=== PATIENT | female | born 1980 | race Caucasian/White ===

== ENCOUNTER 2016-03-04 00:06 | Emergency (ER) | END 2016-03-04 04:25 | disposition left against medical advice (07) | DX: Z53.21 Procedure and treatment not carried out due to patient leaving prior to being seen by health care provider (principal) ==

== ENCOUNTER 2016-10-30 01:40 | Emergency (ER) | payer MEDICAID ==
[~2016-10-30] VITALS: Ht 162.6 cm; Wt 63.5 kg
[~2016-10-30 01:40] MED LIST: DOXY100T2 PO; HYDR-3498 PO; IBUP800T25 PO; NITR-58 PO; ONDA4TAB35 PO
[2016-10-30 01:45] VITALS: Ht 162.6 cm; Wt 63.5 kg
--- NOTE | 2016-10-30 02:23 | ERD ---
ER Documentation Chief Complaint Date/Time DATE: 10/30/16 TIME: 02:22 Chief Complaint AMY flank pain x 3 days. +hematuria. HPI 36-year-old female presents in emergency department for complaints of bilateral flank pain, hematuria and dysuria for 3 days. Patient's complaining of pain in the bilateral flank area sharp pain, Coumadin with dysuria burning pain 4/10 scale, is accompanied with hematuria. Patient denies any fever or chills. Patient denies any vaginal bleeding. Patient denies any nausea or vomiting. Patient denies any diarrhea or constipation. ROS All systems reviewed and are negative except as per history of present illness. Medications Home Meds Active Scripts Polyethylene Glycol* (Miralax*) 17 Gm Powd.pack, 17 GM PO DAILY, #7 Prov:SUYAPA DEAN NP 10/30/16 Ondansetron (Ondansetron Odt) 4 Mg Tab.rapdis, 4 MG PO Q8 Y for NAUSEA AND/OR VOMITING, #10 TAB Prov:SUYAPA DEAN NP 10/30/16 Hydrocodone/Acetaminophen ([place] 5-325 Tablet) 1 Each Tablet, 1 TAB PO Q6H Y for SEVERE PAIN LEVEL 7-10, #20 TAB Prov:SUYAPA DEAN NP 10/30/16 Ciprofloxacin Hcl* (Ciprofloxacin Hcl*) 500 Mg Tablet, 500 MG PO BID for 10 Days , TAB Prov:SUYAPA DEAN NP 10/30/16 Phenazopyridine Hcl* (Pyridium*) 200 Mg Tab, 200 MG PO TID Y for URINARY PAIN, # 6 TAB Prov:SUYAPA DEAN NP 10/30/16 Ibuprofen* (Motrin*) 800 Mg Tab, 800 MG PO Q8, #30 TAB Prov:EDUARDO KITCHEN STUMP BLOWER 03/11/15 Nitrofurantoin Monohyd Macrocr* (Macrobid*) 100 Mg Capsr, 100 MG PO BID for 7 Days, CAP Prov:CATALINA ESQUEDA 09/12/14 Ondansetron Hcl* (Zofran* ODT) 4 mg -ODT Tab.disper, 4 MG PO Q6 Y for NAUSEA AND /OR VOMITING, #5 TAB Prov:CATALINA ESQUEDA 09/12/14 Hydrocodone Bit/Acetaminophen (Anexsia 5-325 Mg Tablet) 1 Tab Tab, 2 TAB PO Q6H Y for MODERATE PAIN LEVEL 4-6 for 7 Days Prov:CANDIE ARELLANO MD 11/03/13 Doxycycline* (Vibramycin*) 100 Mg Tab, 100 MG PO BID for 14 Days, TAB Prov:CANDIE ARELLANO MD 11/03/13 Allergies Allergies: Coded Allergies: No Known Allergy (Unverified , 10/30/16) PMhx/Soc Medical and Surgical Hx: pt denies Medical Hx History of Surgery: Yes (right ovary cyst removal) Anesthesia Reaction: No Hx Neurological Disorder: No Hx Respiratory Disorders: No Hx Cardiac Disorders: No Hx Psychiatric Problems: No Hx Miscellaneous Medical Probl: No Hx Alcohol Use: Yes (DAILY VODKA) Hx Substance Use: Yes (marijuana) Hx Tobacco Use: No Smoking Status: Never smoker FmHx Family History: No coronary disease, No diabetes, No other Physical Exam Vitals Vital Signs Date Time Temp Pulse Resp B/P Pulse Ox O2 Delivery O2 Flow Rate FiO2 10/30/16 01:45 98.2 92 18 111/72 100 Physical Exam GENERAL: The patient is well developed and appropriate for usual state of health, in no apparent distress. CHEST: Clear to auscultation bilaterally. There are no rales, wheezes or rhonchi. HEART: Regular rate and rhythm. No murmurs, clicks, rubs or gallops. No S3 or S4. ABDOMEN: Soft, nontender and nondistended. Good bowel sounds. No rebound or guarding. No gross peritonitis. No gross organomegaly or masses. No El sign or McBurney point tenderness. BACK: No midline or flank tenderness. EXTREMITIES: Equal pulses bilaterally. There is no peripheral clubbing, cyanosis or edema. No focal swelling or erythema. Full range of motion. Grossly neurovascularly intact. NEURO: Alert and oriented. Cranial nerves 2-12 intact. Motor strength in all 4 extremities with 5/5 strength. Sensation grossly intact. Normal speech and gait. SKIN: There is no apparent rash or petechia. The skin is warm and dry. HEMATOLOGIC AND LYMPHATIC: There is no evidence of excessive bruising or lymphedema. No gross cervical, axillary, or inguinal lymphadenopathy. Result Diagram: 10/30/1622610/30/16226 Results 24 hrs Laboratory Tests Test 10/30/16 02:27 10/30/16 02:30 10/30/16 03:00 White Blood Count 6.810^3/ul Red Blood Count 4.4610^6/ul Hemoglobin 12.2g/dl Hematocrit 38.1% Mean Corpuscular Volume 85.4fl Mean Corpuscular Hemoglobin 27.4pg Mean Corpuscular Hemoglobin Concent 32.0g/dl Red Cell Distribution Width 13.5% Platelet Count 70271^3/UL Mean Platelet Volume 9.5fl Neutrophils % 67.2% Lymphocytes % 20.8% Monocytes % 10.2% Eosinophils % 1.0% Basophils % 0.7% Nucleated Red Blood Cells % 0.0/100WBC Neutrophils # 4.610^3/ul Lymphocytes # 1.410^3/ul Monocytes # 0.710^3/ul Eosinophils # 0.110^3/ul Basophils # 0.110^3/ul Nucleated Red Blood Cells # 0.010^3/ul Sodium Level 140mmol/L Potassium Level 4.0mmol/L Chloride Level 102mmol/L Carbon Dioxide Level 26mmol/L Anion Gap 16 Blood Urea Nitrogen 10mg/dl Creatinine 0.79mg/dl Glucose Level 95mg/dl Calcium Level 9.3mg/dl Total Bilirubin 0.1mg/dl Direct Bilirubin 0.00mg/dl Indirect Bilirubin 0.1mg/dl Aspartate Amino Transf (AST/SGOT) 16IU/L Alanine Aminotransferase (ALT/SGPT) 30IU/L Alkaline Phosphatase 64IU/L Total Protein 7.8g/dl Albumin 4.3g/dl Globulin 3.50g/dl Albumin/Globulin Ratio 1.22 Lipase 29U/L Urine Color YELLOW Urine Clarity CLOUDY Urine pH 5.0 Urine Specific [place] 1.012 Urine Ketones 2+mg/dL Urine Nitrite NEGATIVEmg/dL Urine Bilirubin NEGATIVEmg/dL Urine Urobilinogen NEGATIVEmg/dL Urine Leukocyte Esterase 3+Seth/ul Urine Microscopic RBC > 182/HPF Urine Microscopic WBC 89/HPF Urine Squamous Epithelial Cells MANY/HPF Urine Bacteria FEW/HPF Urine Mucus FEW/HPF Urine Hemoglobin 3+mg/dL Urine Glucose NEGATIVEmg/dL Urine Total Protein 1+mg/dl Urine Test NEGATIVE Current Medications Medications (Trade) Dose Ordered Sig/Ted Route PRN Reason Start Time Stop Time Status Last Admin Dose Admin Acetaminophen/ Hydrocodone Bitart ([place] (5/325)) 1 tab ONCE ONCE PO 10/30/16 04:30 10/30/16 04:31 DC 10/30/16 04:38 Phenazopyridine HCl (Pyridium) 200 mg ONCE ONCE PO 10/30/16 04:30 10/30/16 04:31 DC 10/30/16 04:37 Ceftriaxone Sodium (Rocephin) 1 gm ONCE ONCE IM 10/30/16 05:30 10/30/16 05:31 Patient was given medication for pain here in emergency department, after treatment, patient verbalized feeling much better. Patient's pain is improved.IM Rocephin was given here in emergency department, tolerated medication well. PROCEDURE: CT Abdomen and pelvis without contrast. CLINICAL INDICATION: Abdominal pain. TECHNIQUE: CT scan of the abdomen and pelvis was performed on a multi- detector high-resolution CT scanner. Contiguous axial images were obtained from the lung bases to the ischial tuberosities without intravenous contrast. Coronal and sagittal reformatted images were also obtained. Images were reviewed on the PACS workstation. One or more of the following dose reduction techniques were used: - Automated exposure control. - Adjustment of the mA and/or kV according to patient size. - Use of iterative reconstruction technique. Exam CTD/vol = 6.74 mGy. Total exam DLP = 362.90 mGy-cm. COMPARISON: 10/26/2013. FINDINGS: Evaluation of the lung bases demonstrates no pleural or parenchymal disease. Abdomen: The liver is normal in size. There is no focal mass or dilatation of the biliary tree. The gallbladder is not distended. The spleen, pancreas and bilateral adrenal glands are within normal limits. Bilateral kidneys are normal in size with no contour deforming mass identified. There is no radiopaque renal or ureteral calculus identified. There is no hydronephrosis or hydroureter. There is no retroperitoneal adenopathy. The abdominal aorta is of normal caliber. There is moderate retained stool within the colon. There is no bowel obstruction or free air. A normal appendix is identified. There is no diverticulosis or diverticulitis. There is no ascites. Pelvis: The bladder is unremarkable. The uterus is enlarged containing a large fibroid. There is a cystic structure within the right adnexa measuring 4.5 x 2.7 cm. There is mild pelvic free fluid. There is no significant pelvic adenopathy. Evaluation of the osseous structures demonstrates no suspicious lytic or blastic lesion. IMPRESSION: Right adnexal 4.5 cm cyst, decreased compared with 11/02/2013. Uterine fibroid. Mild pelvic free fluid. Moderate retained stool within the colon. .Navi Gaspar MD, Date Time Electronically viewed and signed by .Navi Gaspar MD, on 10/30/2016 04:54 .T/ CC: SUYAPA DEAN STUMP BLOWER Procedures/MDM Medical Decision Making: Patients symptoms are consistent with pyelonephritis. Outpatient management is appropriate since pt is stable at this time. There is low suspicion for abdominal emergencies at this time. Patients abdominal exam is normal. There is low suspicion for sepsis. Patient appears well and is hemodynamically stable. Disposition: Home. Stable Prescription Cipro, Pyridium, [place], Zofran, Miralax (to prevent constipation) Instructions: Patient is advised to take medications as prescribed. Patient is advised to rest, increase fluid intake and do good perineal hygiene. Patient is advised that if symptoms are worse, severe abdominal pain, uncontrolled vomiting , high fever, severe flank pain, worst signs and symptoms, to return to the emergency department immediately. Otherwise, patient can follow up with primary care doctor in 5-7 days. Departure Diagnosis: Primary Impression: Pyelonephritis Condition: Stable Patient Instructions: Pyelonephritis Additional Instructions: Patient is advised to take medications as prescribed. Patient is advised to rest , increase fluid intake and do good perineal hygiene. Patient is advised that if symptoms are worse, severe abdominal pain, uncontrolled vomiting, high fever , severe flank pain, worst signs and symptoms, to return to the emergency department immediately. Otherwise, patient can follow up with primary care doctor in 5-7 days. SUYAPA DEAN NP Oct 30, 2016 02:23
[2016-10-30 02:39] LABS: BASOPHIL # 0.1 10^3/ul (0.0-0.1); BASOPHILS % 0.7 % (0.0-2.0); EOSINOPHILS # 0.1 10^3/ul (0.0-0.5); HEMATOCRIT 38.1 % (37.0-47.0); HEMOGLOBIN 12.2 g/dl (12.0-16.0); LYMPHOCYTES # 1.4 10^3/ul (0.8-2.9); LYMPHOCYTES % 20.8 % (15.0-51.0); MEAN CORPUSCULAR HEMOGLOBIN 27.4 pg (29.0-33.0); MEAN CORPUSCULAR VOLUME 85.4 fl (82.0-101.0); MEAN PLATELET VOLUME 9.5 fl (7.4-10.4); MONOCYTE # 0.7 10^3/ul (0.3-0.9); MONOCYTES % 10.2 % (0.0-11.0); NEUTROPHIL # 4.6 10^3/ul (1.6-7.5); NEUTROPHILS % 67.2 % (39.0-77.0); PLATELET COUNT 301 10^3/UL (140-415); RED BLOOD COUNT 4.46 10^6/ul (4.20-5.40); RED CELL DISTRIBUTION WIDTH 13.5 % (11.5-14.5); WHITE BLOOD COUNT 6.8 10^3/ul (4.8-10.8)
[2016-10-30 03:06] LABS: ALBUMIN 4.3 g/dl (3.3-4.9); ALBUMIN/GLOBULIN RATIO 1.22; BILIRUBIN,INDIRECT 0.1 mg/dl (0-1.1); BILIRUBIN,TOTAL 0.1 mg/dl (0.2-1.3); CALCIUM 9.3 mg/dl (8.4-10.2); CREATININE 0.79 mg/dl (0.44-1.00); TOTAL PROTEIN 7.8 g/dl (6.1-8.1)
[2016-10-30 03:38] LABS: ADD UMIC YES; UR ASCORBIC ACID NEGATIVE (NEGATIVE); UR BACTERIA FEW /HPF (NONE SEEN); UR BILIRUBIN (Dip) NEGATIVE (NEGATIVE); UR BLOOD (Dip) 3+ mg/dL (NEGATIVE); UR CLARITY CLOUDY (CLEAR); UR COLOR YELLOW (YELLOW); UR GLUCOSE (Dip) NEGATIVE (NEGATIVE); UR KETONES (Dip) 2+ mg/dL (NEGATIVE); UR LEUKOCYTE ESTERASE (Dip) 3+ Leu/ul (NEGATIVE); UR MUCUS FEW /HPF (NONE SEEN); UR NITRITE (Dip) NEGATIVE (NEGATIVE); UR RBC > 182 /HPF (0-5); UR SPECIFIC GRAVITY (Dip) 1.012 (1.003-1.030); UR SQUAMOUS EPITHELIAL CELL MANY /HPF (FEW); UR TOTAL PROTEIN (Dip) 1+ mg/dl (NEGATIVE); UR UROBILINOGEN (Dip) NEGATIVE (NEGATIVE); UR WBC CLUMPS FEW /HPF (NONE SEEN)
[2016-10-30] MEDS ORDERED: HYDROCODONE/APAP (5/325) TAB PO ONE (04:30)
[2016-10-30] MEDS ORDERED: PHENAZOPYRIDINE 100 MG TAB PO ONE (04:30)
--- NOTE | 2016-10-30 04:54 | RADRPT ---
PROCEDURE: CT Abdomen and pelvis without contrast. CLINICAL INDICATION: Abdominal pain. TECHNIQUE: CT scan of the abdomen and pelvis was performed on a multi-detector high-resolution CT scanner. Contiguous axial images were obtained from the lung bases to the ischial tuberosities wit hout intravenous contrast. Coronal and sagittal reformatted images were also obtained. Images were reviewed on the PACS workstation. One or more of the following dose reduction techniques were used: - Automated exposure control. - Adjustment of the mA and/or kV according to patient size. - Use of iterative reconstruction technique. Exam CTD/vol = 6.74 mGy. Total exam DLP = 362.90 mGy-cm. COMPARISON: 10/26/2013. FINDINGS: Evaluation of the lung bases demonstrates no pleural or parenchymal disease. Abdomen: The liver is normal in size. There is no focal mass or dilatation of the biliary tree. T he gallbladder is not distended. The spleen, pancreas and bilateral adrenal glands are within ebonie l limits. Bilateral kidneys are normal in size with no contour deforming mass identified. There is no radiopaque renal or ureteral calculus identified. There is no hydronephrosis or hydroureter. T here is no retroperitoneal adenopathy. The abdominal aorta is of normal caliber. There is moderate retained stool within the colon. There is no bowel obstruction or free air. A no rmal appendix is identified. There is no diverticulosis or diverticulitis. There is no ascites. Pelvis: The bladder is unremarkable. The uterus is enlarged containing a large fibroid. There is a cystic structure within the right adnexa measuring 4.5 x 2.7 cm. There is mild pelvic free fluid. There is no significant pelvic adenopathy. Evaluation of the osseous structures demonstrates no suspicious lytic or blastic lesion. IMPRESSION: Right adnexal 4.5 cm cyst, decreased compared with 11/02/2013. Uterine fibroid. Mild pelvic free fluid. Moderate retained stool within the colon. .Navi Gaspar MD, MD Date Time Electronically viewed and signed by .Navi Gaspar MD, MD on 10/30/2016 04:54 .T/
[2016-10-30] MEDS ORDERED: PHEN-538 PO (05:04)
[2016-10-30] MEDS ORDERED: HYDR-906 PO (05:04)
[2016-10-30] MEDS ORDERED: POLY17PO6 PO (05:04)
[2016-10-30] MEDS ORDERED: CIPR500T4 PO (05:04)
[2016-10-30] MEDS ORDERED: ONDA4TAB14 PO (05:04)
[2016-10-30 05:20] VITALS: BP 121/78; PULSE 68; RESP 18; TEMP 97.7
[2016-10-30] MEDS ORDERED: CEFTRIAXONE 1 GM INJ IM ONE (05:30)
== END 2016-10-30 05:20 | disposition home or self-care (01) ==
LOC: FTE 01:40
DX: N12 Tubulo-interstitial nephritis, not specified as acute or chronic (principal)
CPT/HCPCS: 36415; 74176; 80053; 81001; 83690; 84703; 85025; 96372; J0696; Z7502; Z7610

== ENCOUNTER 2017-01-31 17:28 | Emergency (ER) | payer SELFPAY ==
[~2017-01-31] VITALS: Ht 165.1 cm; Wt 70.0 kg
[~2017-01-31 17:28] MED LIST changes: +CIPR500T4 PO; +HYDR-906 PO; +ONDA4TAB14 PO; +PHEN-538 PO; +POLY17PO6 PO
[2017-01-31 17:30] VITALS: Ht 165.1 cm; Wt 70.0 kg
[2017-01-31] MEDS ORDERED: KETOROLAC 30 MG INJ IV STA (18:14)
[2017-01-31] MEDS ORDERED: ONDANSETRON 4 MG INJ IV STA (18:14)
--- NOTE | 2017-01-31 18:22 | ERD ---
ER Documentation Chief Complaint Chief Complaint Right lower abd pain x 4, N/V x 2 days HPI 26-year-old female with a history of right-sided hydrosalpinx, uterine fibroids , PID comes in with a four-day history of right lower quadrant abdominal pain with nausea vomiting. Patient describes localized pain in the right lower quadrant in the pelvis, she is wrist, about a year ago she had an ultrasound that showed a cyst. She denies any fevers, chills. She does report multiple episodes of nonbloody nonbilious emesis but no diarrhea. She denies vaginal bleeding or abnormal vaginal discharge. Her other history also includes that she is an alcoholic she drinks daily. She denies IV drug abuse. Her second complaint today is also chest pain in the center, she reports that this started at the same time as her pain, it is in the center without any radiation, is achy and worse when she takes a deep breath in or out. She denies any fevers chills or cough associated with this. ROS All systems reviewed and are negative except as per history of present illness. Medications Home Meds Active Scripts Docusate Sodium* (Colace*) 100 Mg Capsule, 100 MG PO TID, #30 CAP Prov:JORDON MUÑOZ PA-C 01/31/17 Ibuprofen* (Motrin*) 600 Mg Tab, 600 MG PO Q6, #30 TAB Prov:JORDON MUÑOZ PA-C 01/31/17 Ondansetron (Ondansetron Odt) 4 Mg Tab.rapdis, 4 MG PO Q6H Y for NAUSEA AND/OR VOMITING, #10 TAB Prov:JORDON MUÑOZ PA-C 01/31/17 Cephalexin* (Keflex*) 500 Mg Capsule, 500 MG PO TID for 10 Days, CAP Prov:JORDON MUÑOZ PA-C 01/31/17 Polyethylene Glycol* (Miralax*) 17 Gm Powd.pack, 17 GM PO DAILY, #7 Prov:SUYAPA DEAN NP 10/30/16 Ondansetron (Ondansetron Odt) 4 Mg Tab.rapdis, 4 MG PO Q8 Y for NAUSEA AND/OR VOMITING, #10 TAB Prov:SUYAPA DEAN NP 10/30/16 Hydrocodone/Acetaminophen ([place] 5-325 Tablet) 1 Each Tablet, 1 TAB PO Q6H Y for SEVERE PAIN LEVEL 7-10, #20 TAB Prov:SUYAPA DEAN SPANISHER 10/30/16 Ciprofloxacin Hcl* (Ciprofloxacin Hcl*) 500 Mg Tablet, 500 MG PO BID for 10 Days , TAB Prov:SUYAPA DEAN SPANISHER 10/30/16 Phenazopyridine Hcl* (Pyridium*) 200 Mg Tab, 200 MG PO TID Y for URINARY PAIN, # 6 TAB Prov:SUYAPA DEAN SPANISHER 10/30/16 Ibuprofen* (Motrin*) 800 Mg Tab, 800 MG PO Q8, #30 TAB Prov:FIDELINAEDUARDO DavisCosmo SPANISHER 03/11/15 Nitrofurantoin Monohyd Macrocr* (Macrobid*) 100 Mg Capsr, 100 MG PO BID for 7 Days, CAP Prov:CATALINA ESQUEDA 09/12/14 Ondansetron Hcl* (Zofran* ODT) 4 mg -ODT Tab.disper, 4 MG PO Q6 Y for NAUSEA AND /OR VOMITING, #5 TAB Prov:CATALINA ESQUEDA 09/12/14 Hydrocodone Bit/Acetaminophen (Anexsia 5-325 Mg Tablet) 1 Tab Tab, 2 TAB PO Q6H Y for MODERATE PAIN LEVEL 4-6 for 7 Days Prov:CANDIE ARELLANO MD 11/03/13 Doxycycline* (Vibramycin*) 100 Mg Tab, 100 MG PO BID for 14 Days, TAB Prov:CANDIE ARELLANO MD 11/03/13 Allergies Allergies: Coded Allergies: No Known Allergy (Unverified , 10/30/16) PMhx/Soc History of Surgery: Yes (right ovary cyst removal) Anesthesia Reaction: No Hx Neurological Disorder: No Hx Respiratory Disorders: No Hx Cardiac Disorders: No Hx Psychiatric Problems: No Hx Miscellaneous Medical Probl: No Hx Alcohol Use: Yes (DAILY VODKA) Hx Substance Use: Yes (marijuana) Hx Tobacco Use: No Physical Exam Vitals Vital Signs Date Time Temp Pulse Resp B/P Pulse Ox O2 Delivery O2 Flow Rate FiO2 01/31/17 17:30 97.4 115 20 117/73 100 Physical Exam General: Well-developed, well-nourished. The patient appears in no acute distress. Disheveled appearance. HEENT: Head is normocephalic, atraumatic. No scleral icterus. Neck: Supple. Nontender. Lungs: Clear to auscultation. Normal air movement. Heart: Regular rate and rhythm. S1 and S2 are normal. No murmurs, gallops, or rubs. Abdomen: Soft, tender to palpation the right lower quadrant, no rebound pain or guarding, no masses, nondistended. Bowel sounds are normoactive. Extremities: No clubbing or cyanosis. Normal pulses. Moving extremities x 4. No weakness. Neurologic: Alert and oriented 3. No focal deficits. Skin: Normal turgor. No rash or lesions. Result Diagram: 01/31/17191201/31/171912 Results 24 hrs Laboratory Tests Test 01/31/17 19:13 White Blood Count 8.010^3/ul Red Blood Count 4.7610^6/ul Hemoglobin 13.2g/dl Hematocrit 39.9% Mean Corpuscular Volume 83.8fl Mean Corpuscular Hemoglobin 27.7pg Mean Corpuscular Hemoglobin Concent 33.1g/dl Red Cell Distribution Width 13.1% Platelet Count 84198^3/UL Mean Platelet Volume 9.7fl Neutrophils % 78.3% Lymphocytes % 13.7% Monocytes % 5.8% Eosinophils % 1.4% Basophils % 0.4% Nucleated Red Blood Cells % 0.0/100WBC Neutrophils # 6.210^3/ul Lymphocytes # 1.110^3/ul Monocytes # 0.510^3/ul Eosinophils # 0.110^3/ul Basophils # 0.010^3/ul Nucleated Red Blood Cells # 0.010^3/ul D-Dimer 237.85ng/ml D-Dimer Comment Urine Color ASIF Urine Clarity CLOUDY Urine pH 5.0 Urine Specific [place] 1.027 Urine Ketones NEGATIVEmg/dL Urine Nitrite POSITIVEmg/dL Urine Bilirubin NEGATIVEmg/dL Urine Urobilinogen 2+mg/dL Urine Leukocyte Esterase 1+Seth/ul Urine Microscopic RBC 12/HPF Urine Microscopic WBC 53/HPF Urine Squamous Epithelial Cells MODERATE/HPF Urine Bacteria MANY/HPF Urine Mucus MANY/HPF Urine Hemoglobin 1+mg/dL Urine Glucose NEGATIVEmg/dL Urine Total Protein 1+mg/dl Sodium Level 139mmol/L Potassium Level 3.5mmol/L Chloride Level 96mmol/L Carbon Dioxide Level 31mmol/L Anion Gap 16 Blood Urea Nitrogen 12mg/dl Creatinine 0.87mg/dl Glucose Level 104mg/dl Calcium Level 8.8mg/dl Total Bilirubin 0.1mg/dl Direct Bilirubin 0.00mg/dl Indirect Bilirubin 0.1mg/dl Aspartate Amino Transf (AST/SGOT) 20IU/L Alanine Aminotransferase (ALT/SGPT) 28IU/L Alkaline Phosphatase 71IU/L Total Protein 7.6g/dl Albumin 3.9g/dl Globulin 3.70g/dl Albumin/Globulin Ratio 1.05 Lipase 21U/L Serum HCG, Qualitative NEGATIVE Current Medications Medications (Trade) Dose Ordered Sig/Ted Route PRN Reason Start Time Stop Time Status Last Admin Dose Admin Ondansetron HCl (Zofran Inj) 4 mg ONCE STAT IV 01/31/17 18:14 01/31/17 18:17 DC 01/31/17 19:09 Ketorolac Tromethamine (Toradol) 30 mg ONCE STAT IV 01/31/17 18:14 01/31/17 18:17 DC 01/31/17 19:09 IV Flush 10 ml 10 ml STK-MED ONCE .ROUTE 01/31/17 20:06 01/31/17 20:07 DC 01/31/17 20:16 Sodium Chloride (NS) 100 ml @ ud STK-MED ONCE .ROUTE 01/31/17 20:06 01/31/17 20:07 DC 01/31/17 20:16 Iohexol 150 ml 150 ml STK-MED ONCE .ROUTE 01/31/17 20:06 01/31/17 20:07 DC 01/31/17 20:17 Ceftriaxone Sodium (Rocephin) 50 ml @ 100 mls/hr ONCE ONCE IVPB 01/31/17 21:00 01/31/17 21:29 DIAGNOSTIC IMAGING REPORT Patient: MINA MORROW : 1980 Age: 36 Sex: F MR #: [id number] DOS: 01/31/171813 Ordering MD: JORDON MUÑOZ PA-C Location: [facility] Room/Bed: PROCEDURE: XR Chest. CLINICAL INDICATION: Chest pain. TECHNIQUE: Single frontal view. COMPARISON: None. FINDINGS: The lungs are clear. The heart size is normal. There is no pleural effusion. There is no pneumothorax. IMPRESSION: 1. Normal chest radiograph. RPTAT: QQ .Gustavo Morales MD, MD Date Time Electronically viewed and signed by .Gustavo Morales MD, on 01/31/2017 19:28 .R/ CC: JORDON MUÑOZ PA-C PROCEDURE: CT SCAN OF THE ABDOMEN AND PELVIS with IV CONTRAST CLINICAL INDICATION: Right lower quadrant pain TECHNIQUE: Utilizing the multi-slice spiral CT scanner, Transaxial images were obtained through the abdomen and pelvis with IV contrast. Additional sagittal, coronal, MPR images were also obtained. DICOM images are available Radiation Dose: CTDI vol 5.42 mGy, DLP 293.13 mGy-cm. One of more of the following dose reduction techniques were utilized: -automatic exposure control -adjustment of the mA and/or kV according to patient size -Use of iterative reconstruction technique Contrast used: 100 cc Visipaque 320 COMPARISON: 10/30/2016 FINDINGS: Limited slices through the lung bases are clear. CT Abdomen Fatty liver with low density nonenhancing lesionS measuring 4 mm and suggestive of cysts. Patent hepatic and portal veins are seen. Stomach, spleen, pancreas, adrenals, gallbladder is seen. Kidneys do not demonstrate any intra renal stones or hydronephrosis. Normal opacification of the celiac, SMA, bilateral renal arteries is noted. Moderate stool noted in the large bowel with no free air or ascites noted. Appendix is seen appearing unremarkable. CT pelvis large bulky uterus with multiple low density areas within is seen suggestive of fibroids. Fluid noted in the endometrial canal. Adnexal low density lesions are seen, probably ovarian in etiology. Bladder, rectosigmoid colon appears unremarkable. No pelvic ascites noted. Osseous structures appear unremarkable.. IMPRESSION: Low density liver lesions are most likely cysts Moderate colonic stool with no free air or ascites noted. Appendix seen appearing unremarkable. Large bulky uterus with low density areas suggestive of fibroids, confirm sonographically RPTAT: AAOO Signed By: Katarina Han M.d 01/31/2017 8:27:07 PM DIAGNOSTIC IMAGING REPORT Patient: MINA MORROW: 1980 Age: 36 Sex: F MR #: [id number] DOS: 01/31/17 1814 Ordering MD: JORDON MUÑOZ PA-C Location: [facility] Room/Bed: PROCEDURE: Pelvic ultrasound. CLINICAL INDICATION: Pelvic pain TECHNIQUE: Loya scale, color doppler, spectral doppler ultrasound of the pelvis was performed with transabdominal and transvaginal transducers. COMPARISON: CT 10/30/2016; US PELVIS 09/12/2014 FINDINGS: Uterus: Position: Anteverted. 2.0 cm subserosal fibroid of the ventral uterine fundus. Apparent midline uterine myometrial cleft/septum. Endometrial thickness upper limits of normal without focal lesion. Ovaries: Normal appearing right ovary. Right ovarian blood flow is present. Left ovary not identified by the financial representative. Free fluid: None. Measurements: Endometrium (cm): 1.4 Uterus (cm): 10.5 x 6.5 x 10.5 Right ovary (cm): 3.4 x 2.0 x 2.0 IMPRESSION: Suspected enlarged septate uterine configuration not well visualized. Left ovary not visualized. MRI of the pelvis recommended for further evaluation. RPTAT: AADD .Last Luna MD, MD Date Time Electronically viewed and signed by .Last Luna MD, MD on 01/31/2017 20:37 .B/ CC: JORDON MUÑOZ PA-C Procedures/MDM ED COURSE: Patient had IV access, blood and urine are taken which she was given Toradol 30 mg and Zofran 4 mg IV. Patient received Rocephin 1g IV MEDICAL DECISION MAKIN-year-old female comes in right lower quadrant abdominal pain, nausea vomiting and lower abdominal pain. Patient's workup shows positive nitrite urine with multiple white blood cells and leukocyte esterase, and was given Rocephin 1 g IV. There is no evidence of leukocytosis, no chemistry abnormalities or ultra abnormalities. CT abdomen pelvis shows multiple uterine fibroids, no evidence of appendicitis. Pelvic ultrasound shows multiple uterine fibroids, there is flow to both ovaries, no adnexal masses patient is able to be discharged home. Patient was subsequently chest pain, shortness breath, d-dimer is negative, chest x-ray is normal chest wall tenderness. Departure Diagnosis: Primary Impression: Urinary tract infection Additional Impressions: Uterine fibroid Constipation Condition: Good JORDON MUÑOZ PA-C Jan 31, 2017 18:22
--- NOTE | 2017-01-31 19:28 | RADRPT ---
PROCEDURE: XR Chest. CLINICAL INDICATION: Chest pain. TECHNIQUE: Single frontal view. COMPARISON: None. FINDINGS: The lungs are clear. The heart size is normal. There is no pleural effusion. There is no pneumothorax. IMPRESSION: 1. Normal chest radiograph. RPTAT: QQ .Gustavo Morales MD, Date Time Electronically viewed and signed by .Gustavo Morales MD, on 01/31/2017 19:28 .R/
[2017-01-31 19:40] LABS: BASOPHILS % 0.4 % (0.0-2.0); EOSINOPHILS # 0.1 10^3/ul (0.0-0.5); EOSINOPHILS % 1.4 % (0.0-7.0); HEMATOCRIT 39.9 % (37.0-47.0); HEMOGLOBIN 13.2 g/dl (12.0-16.0); LYMPHOCYTES # 1.1 10^3/ul (0.8-2.9); LYMPHOCYTES % 13.7 % (15.0-51.0); MEAN CORPUSCULAR HEMOGLOBIN 27.7 pg (29.0-33.0); MEAN CORPUSCULAR HGB CONC 33.1 g/dl (32.0-37.0); MEAN CORPUSCULAR VOLUME 83.8 fl (82.0-101.0); MEAN PLATELET VOLUME 9.7 fl (7.4-10.4); MONOCYTE # 0.5 10^3/ul (0.3-0.9); MONOCYTES % 5.8 % (0.0-11.0); NEUTROPHIL # 6.2 10^3/ul (1.6-7.5); NEUTROPHILS % 78.3 % (39.0-77.0); PLATELET COUNT 362 10^3/UL (140-415); RED BLOOD COUNT 4.76 10^6/ul (4.20-5.40); RED CELL DISTRIBUTION WIDTH 13.1 % (11.5-14.5)
[2017-01-31 19:53] LABS: ADD UMIC YES; UR ASCORBIC ACID NEGATIVE (NEGATIVE); UR BACTERIA MANY /HPF (NONE SEEN); UR BILIRUBIN (Dip) NEGATIVE (NEGATIVE); UR BLOOD (Dip) 1+ mg/dL (NEGATIVE); UR CLARITY CLOUDY (CLEAR); UR COLOR AMBER (YELLOW); UR GLUCOSE (Dip) NEGATIVE (NEGATIVE); UR KETONES (Dip) NEGATIVE (NEGATIVE); UR LEUKOCYTE ESTERASE (Dip) 1+ Leu/ul (NEGATIVE); UR MUCUS MANY /HPF (NONE SEEN); UR NITRITE (Dip) POSITIVE (NEGATIVE); UR RBC 12 /HPF (0-5); UR SPECIFIC GRAVITY (Dip) 1.027 (1.003-1.030); UR SQUAMOUS EPITHELIAL CELL MODERATE /HPF (FEW); UR TOTAL PROTEIN (Dip) 1+ mg/dl (NEGATIVE); UR UROBILINOGEN (Dip) 2+ mg/dL (NEGATIVE)
[2017-01-31 20:03] LABS: ALBUMIN 3.9 g/dl (3.3-4.9); ALBUMIN/GLOBULIN RATIO 1.05; BILIRUBIN,INDIRECT 0.1 mg/dl (0-1.1); BILIRUBIN,TOTAL 0.1 mg/dl (0.2-1.3); CALCIUM 8.8 mg/dl (8.4-10.2); CREATININE 0.87 mg/dl (0.44-1.00); POTASSIUM 3.5 mmol/L (3.5-5.1); TOTAL PROTEIN 7.6 g/dl (6.1-8.1)
[2017-01-31 20:04] LABS: D-DIMER 237.85 ng/ml (<460)
[2017-01-31] MEDS ORDERED: IOHEXOL 300MG/ML 150 ML BTL ONE (20:06)
[2017-01-31] MEDS ORDERED: SOD CHLORIDE 0.9% 100 ML ONE (20:06)
--- NOTE | 2017-01-31 20:27 | RADRPT ---
PROCEDURE: CT SCAN OF THE ABDOMEN AND PELVIS with IV CONTRAST CLINICAL INDICATION: Right lower quadrant pain TECHNIQUE: Utilizing the multi-slice spiral CT scanner, Transaxial images were obtained through the abdomen and pelvis with IV contrast. Additional sagittal, coronal, MPR images were also obtained. DICOM images are available Radiation Dose: CTDI vol 5.42 mGy, DLP 293.13 mGy-cm. One of more of the following dose reduction techniques were utilized: -automatic exposure control -adjustment of the mA and/or kV according to patient size -Use of iterative reconstruction technique Contrast used: 100 cc Visipaque 320 COMPARISON: 10/30/2016 FINDINGS: Limited slices through the lung bases are clear. CT Abdomen Fatty liver with low density nonenhancing lesionS measuring 4 mm and suggestive of cysts. Patent hep atic and portal veins are seen. Stomach, spleen, pancreas, adrenals, gallbladder is seen. Kidneys do not demonstrate any intra renal stones or hydronephrosis. Normal opacification of the celiac, SMA, bilateral renal arteries is noted. Moderate stool noted in the large bowel with no free air or ascit es noted. Appendix is seen appearing unremarkable. CT pelvis large bulky uterus with multiple low density areas within is seen suggestive of fibroids. Fluid noted in the endometrial canal. Adnexal low density lesions are seen, probably ovarian in etio logy. Bladder, rectosigmoid colon appears unremarkable. No pelvic ascites noted. Osseous structures appear unremarkable.. IMPRESSION: Low density liver lesions are most likely cysts Moderate colonic stool with no free air or ascites noted. Appendix seen appearing unremarkable. Large bulky uterus with low density areas suggestive of fibroids, confirm sonographically RPTAT: AAOO Physician Sparkle Date Time Electronically viewed and signed by Physician Sparkle on 01/31/2017 20:27 MB/
--- NOTE | 2017-01-31 20:37 | RADRPT ---
PROCEDURE: Pelvic ultrasound. CLINICAL INDICATION: Pelvic pain TECHNIQUE: Loya scale, color doppler, spectral doppler ultrasound of the pelvis was performed with transabdominal and transvaginal transducers. COMPARISON: CT 10/30/2016; US PELVIS 09/12/2014 FINDINGS: Uterus: Position: Anteverted. 2.0 cm subserosal fibroid of the ventral uterine fundus. Apparent midline uterine myometrial cleft/s eptum. Endometrial thickness upper limits of normal without focal lesion. Ovaries: Normal appearing right ovary. Right ovarian blood flow is present. Left ovary not identified by the cut off worker. Free fluid: None. Measurements: Endometrium (cm): 1.4 Uterus (cm): 10.5 x 6.5 x 10.5 Right ovary (cm): 3.4 x 2.0 x 2.0 IMPRESSION: Suspected enlarged septate uterine configuration not well visualized. Left ovary not visualized. MRI of the pelvis recommended for further evaluation. RPTAT: AADD .Last Luna MD, MD Date Time Electronically viewed and signed by .Last Luna MD, on 01/31/2017 20:37 .B/
[2017-01-31] MEDS ORDERED: IBUP-1542 PO (20:43)
[2017-01-31] MEDS ORDERED: ONDA4TAB14 PO (20:43)
[2017-01-31] MEDS ORDERED: CEPH-443 PO (20:43)
[2017-01-31] MEDS ORDERED: DOCU-144 PO (20:54)
[2017-01-31] MEDS ORDERED: CEFTRIAXONE 1 GM/50 ML (PMX) 50 ML IVPB ONE (21:00)
[2017-01-31 21:47] VITALS: BP 121/73; PULSE 76; RESP 16; TEMP 98.2
== END 2017-01-31 21:49 | disposition home or self-care (01) ==
LOC: FTE 17:28
DX: N39.0 Urinary tract infection, site not specified (principal); D25.9 Leiomyoma of uterus, unspecified; K59.00 Constipation, unspecified
CPT/HCPCS: 36415; 71010; 74177; 76830; 76856; 80053; 81001; 83690; 84703; 85025; 85378; 96374; 96375; 99285; J0696; J1885; J2405; Q9967

== ENCOUNTER 2018-09-13 21:19 | Emergency (ER) | payer SELFPAY ==
[~2018-09-13] VITALS: Ht 165.1 cm; Wt 67.5 kg
[~2018-09-13 21:19] MED LIST changes: +CEPH-443 PO; +CIPR-193 PO; +DOCU-144 PO; +HYDR-4011 PO; -HYDR-906 PO; +IBUP-1542 PO; +IBUP-1561 PO; -IBUP800T25 PO; +IBUP800T48 PO
[2018-09-13 21:26] VITALS: Ht 165.1 cm; Wt 67.5 kg
[2018-09-13] MEDS ORDERED: ONDANSETRON (ODT) 4 MG TAB ODT STA (22:21)
--- NOTE | 2018-09-13 22:25 | ERD ---
ER Documentation Chief Complaint Chief Complaint PELVIC PAIN WITH VAG BLEEDING/DISCHARGE X4DAYS HPI 38-year-old female, previously healthy, presents to the emergency department, complaining of 4 days with right pelvic pain, associated with mild spotting. Her last menstrual period was 1 week ago, she is . She denies fever, no chills, no vaginal discharge, no urinary symptoms, no diarrhea or constipation. The patient denies fever or chills. ROS All systems reviewed and are negative except as per history of present illness. Medications Home Meds Active Scripts Ibuprofen* (Motrin*) 400 Mg Tab, 400 MG PO Q6H PRN for PAIN AND OR ELEVATED TEMP, #30 TAB Prov:KAYCEE CASTILLO MD 09/14/18 Hydrocodone/Acetaminophen ([place] 5-325 Tablet) 1 Each Tablet, 1 TAB PO Q6H PRN for PAIN, #7 TAB Prov:KAYCEE CASTILLO MD 09/14/18 Ciprofloxacin Hcl* (Ciprofloxacin Hcl*) 250 Mg Tablet, 250 MG PO BID for 7 Days, #14 TAB Prov:KAYCEE CASTILLO MD 09/14/18 Docusate Sodium* (Colace*) 100 Mg Capsule, 100 MG PO TID, #30 CAP Prov:JORDON MUÑOZ PA-C 01/31/17 Ibuprofen* (Motrin*) 600 Mg Tab, 600 MG PO Q6, #30 TAB Prov:JORDON MUÑOZ PA-C 01/31/17 Ondansetron (Ondansetron Odt) 4 Mg Tab.rapdis, 4 MG PO Q6H PRN for NAUSEA AND/OR VOMITING, #10 TAB Prov:JORDON MUÑOZ PA-C 01/31/17 Cephalexin* (Keflex*) 500 Mg Capsule, 500 MG PO TID for 10 Days, CAP Prov:JORDON MUÑOZ PA-C 01/31/17 Polyethylene Glycol* (Miralax*) 17 Gm Powd.pack, 17 GM PO DAILY, #7 Prov:SUYAPA DEAN NP 10/30/16 Ondansetron (Ondansetron Odt) 4 Mg Tab.rapdis, 4 MG PO Q8 PRN for NAUSEA AND/OR VOMITING, #10 TAB Prov:SUYAPA DEAN NP 10/30/16 Hydrocodone/Acetaminophen ([place] 5-325 Tablet) 1 Each Tablet, 1 TAB PO Q6H PRN for SEVERE PAIN LEVEL 7-10, #20 TAB Prov:SUYAPA DEAN NP 10/30/16 Ciprofloxacin Hcl* (Ciprofloxacin Hcl*) 500 Mg Tablet, 500 MG PO BID for 10 Days, TAB Prov:SUYAPA DEAN COMPOSITE MECHANIC 10/30/16 Phenazopyridine Hcl* (Pyridium*) 200 Mg Tab, 200 MG PO TID PRN for URINARY PAIN, #6 TAB Prov:SUYAPA DEAN COMPOSITE MECHANIC 10/30/16 Ibuprofen* (Motrin*) 800 Mg Tab, 800 MG PO Q8, #30 TAB Prov:EDUARDO KITCHEN NP 03/11/15 Nitrofurantoin Monohyd Macrocr* (Macrobid*) 100 Mg Capsr, 100 MG PO BID for 7 Days, CAP Prov:CATALINA ESQUEDA 09/12/14 Ondansetron Hcl* (Zofran* ODT) 4 mg -ODT Tab.disper, 4 MG PO Q6 PRN for NAUSEA AND/OR VOMITING, #5 TAB Prov:CATALINA ESQUEDA 09/12/14 Hydrocodone Bit/Acetaminophen (Anexsia 5-325 Mg Tablet) 1 Tab Tab, 2 TAB PO Q6H PRN for MODERATE PAIN LEVEL 4-6 for 7 Days Prov:CANDIE ARELLANO MD 11/03/13 Doxycycline* (Vibramycin*) 100 Mg Tab, 100 MG PO BID for 14 Days, TAB Prov:CANDIE ARELLANO MD 11/03/13 Allergies Allergies: Coded Allergies: No Known Allergy (Unverified , 10/30/16) PMhx/Soc History of Surgery: Yes (right ovary cyst removal) Anesthesia Reaction: No Hx Neurological Disorder: No Hx Respiratory Disorders: No Hx Cardiac Disorders: No Hx Psychiatric Problems: No Hx Miscellaneous Medical Probl: No Hx Alcohol Use: Yes (DAILY VODKA) Hx Substance Use: Yes (marijuana) Hx Tobacco Use: No Smoking Status: Never smoker Physical Exam Vitals Vital Signs Date Temp Pulse Resp B/P (MAP) Pulse Ox O2 O2 Flow FiO2 Time Delivery Rate 09/13/18 98.9 113 20 136/72 100 21:26 (93) Physical Exam Const: No acute distress Head: Atraumatic Eyes: Normal Conjunctiva ENT: Normal External Ears, Nose and Mouth. Neck: Full range of motion. No meningismus. Resp: Clear to auscultation bilaterally Cardio: Regular rate and rhythm, no murmurs Abd: Soft, non tender, non distended. Normal bowel sounds Skin: No petechiae or rashes Back: No midline or flank tenderness Ext: No cyanosis, or edema Neur: Awake and alert Psych: Normal Mood and Affect Result Diagram: 09/13/18223609/13/182236 Results 24 hrs Laboratory Tests Test 09/13/18 22:03 09/13/18 22:10 09/13/18 22:37 Urine Color ASFI Urine Clarity SLIGHTLY CLOUDY Urine pH 5.0 Urine Specific [place] 1.028 Urine Ketones NEGATIVE mg/dL Urine Nitrite POSITIVE mg/dL Urine Bilirubin NEGATIVE mg/dL Urine Urobilinogen NEGATIVE mg/dL Urine Leukocyte Esterase 2+ Seth/ul Urine Microscopic RBC 14 /HPF Urine Microscopic WBC 128 /HPF Urine Squamous Epithelial Cells FEW /HPF Urine Bacteria FEW /HPF Urine Mucus MANY /HPF Urine Hemoglobin NEGATIVE mg/dL Urine Glucose NEGATIVE mg/dL Urine Total Protein NEGATIVE mg/dl POC Beta HCG, Qualitative NEGATIVE White Blood Count 7.3 10^3/ul Red Blood Count 4.89 10^6/ul Hemoglobin 12.7 g/dl Hematocrit 41.3 % Mean Corpuscular Volume 84.5 fl Mean Corpuscular Hemoglobin 26.0 pg Mean Corpuscular 30.8 g/dl Hemoglobin Concent Red Cell Distribution Width 14.6 % Platelet Count 458 10^3/UL Mean Platelet Volume 9.1 fl Immature Granulocytes % 0.300 % Neutrophils % 63.2 % Lymphocytes % 27.6 % Monocytes % 7.1 % Eosinophils % 1.4 % Basophils % 0.4 % Nucleated Red Blood Cells % 0.0 /100WBC Immature Granulocytes # 0.020 10^3/ul Neutrophils # 4.6 10^3/ul Lymphocytes # 2.0 10^3/ul Monocytes # 0.5 10^3/ul Eosinophils # 0.1 10^3/ul Basophils # 0.0 10^3/ul Nucleated Red Blood Cells # 0.0 10^3/ul Sodium Level 139 mmol/L Potassium Level 4.2 mmol/L Chloride Level 103 mmol/L Carbon Dioxide Level 28 mmol/L Anion Gap 8 Blood Urea Nitrogen 9 mg/dl Creatinine 0.98 mg/dl Est Glomerular Filtrat > 60 mL/min Rate mL/min Glucose Level 104 mg/dl Calcium Level 9.6 mg/dl Current Medications Medications Dose Sig/Ted Start Time Status Last (Trade) Ordered Route PRN Stop Time Admin Dose Reason Admin 1 tab ONCE ONCE 09/13/18 DC 09/13/18 Acetaminophen PO 22:30 09/13/18 22:58 / 22:32 Hydrocodone Bitart ([place] (5/325)) Ibuprofen 600 mg ONCE ONCE 09/13/18 DC 09/13/18 (Motrin) PO 22:30 09/13/18 22:57 22:32 Ondansetron 4 mg ONCE STAT 09/13/18 DC 09/13/18 HCl (Zofran ODT 22:21 09/13/18 22:58 Odt) 22:32 500 mg ONCE ONCE 09/14/18 DC Ciprofloxacin PO 01:00 09/14/18 (Cipro) 01:05 Patient: MINA MORROW : 1980 Age: 38 Sex: F MR #: [id number] DOS: 09/13/18 2221 Ordering MD: KAYCEE CASTILLO MD Location: [facility] Room/Bed: PROCEDURE: Pelvic ultrasound color-flow Doppler of the adnexa was performed CLINICAL INDICATION: Right sided pelvic pain TECHNIQUE: Multiple sagittal, oblique and transverse real time images were obtained of the lower abdomen and pelvis using a transabdominal as well a transvaginal approach. Color-flow Doppler of the adnexa was performed. COMPARISON: Pelvic ultrasound 01/31/2017 FINDINGS: The uterus is enlarged measuring 10.83 x 7.44 x 10.41 cm. Myometrial echoes are heterogeneous with multiple leiomyomas the largest measuring 3.5 cm. The endometrium is homogeneous without focal lesions and is thickened with a maximal AP diameter 1.6 cm. There is a small left hydrosalpinx present. Right ovary is normal in size measuring 2.96 x 1.92 x 2.45 cm and the left enlarged measuring 4.38 x 2.68 x 2.87 cm. Within the left ovary are 2 complicated cysts consistent with hemorrhagic cyst measuring 2.3 and 1.5 cm. Within the right ovary is a single septated 1.9 cm cyst. No other ovarian lesions. Flow to both ovaries without ultrasonic evidence of ovarian torsion. No adnexal masses or free fluid. IMPRESSION: 1. Enlarged heterogeneous uterus with multiple leiomyomas the largest measuring 3.5 cm. 2. Thickened homogeneous endometrium. 3. Enlarged left ovary containing 2 complicated cysts consistent with hemorrhagic cysts measuring 2.3 and 1.5 cm. 4. Normal size right ovary containing a single septated 1.9 cm cyst. 5. No ultrasonic evidence of ovarian torsion. 6. Small left hydrosalpinx. 7. No adnexal masses or free fluid Procedures/MDM Differential diagnosis include but not limited to: UTI, colitis, gastroenteritis, kidney stones, irritable bowel syndrome, inflammatory bowel syndrome, malabsorption syndrome, cholelithiasis, food intolerance, medication side effect, pancreatitis, diverticulitis, bowel obstruction. Low suspicion for acute abdomen Physical examination and clinical presentation consistent most likely with urinary tract infection. During the ED course the patient remained stable, no new complaints. Results and clinical impression discussed with patient who agrees with management. The patient is stable to be treated outpatient and will be discharged home, some side effects of prescribed medications (headache, rash, nausea, vomiting, diarrhea, drowsiness, habituation, bleeding, hypertension, interactions with other medications) were reviewed. The patient was instructed to follow up with the primary care provider in the next 48h. If symptoms persist, worsen or new symptoms develop, then patient should return to the ED immediately. Instructions explained and given directly by me to the patient with acknowledgment and demonstrated understanding. Disclaimer: Inadvertent spelling and grammatical errors are likely due to EHR/dictation software use and do not reflect on the overall quality of patient care. Also, please note that the electronic time recorded on this note does not necessarily reflect the actual time of the patient encounter. Departure Diagnosis: Primary Impression: UTI (urinary tract infection) Additional Impression: Ovarian cyst Condition: Stable Additional Instructions: Thank you very much for allowing us to participate in your care. Your health and safety is our top priority at [facility]. The evaluation in the emergency department has been done to rule out an acute emergency. Chronic, [id number] conditions may have not been evaluated; therefore, you need to follow up with a primary care provider in the next 48h. If symptoms persist, worsen or new symptoms develop, then patient should return to the ED immediately. Call your primary care doctor TOMORROW for an appointment during the next 2-4 days and bring all the information provided. Have prescriptions filled and follow precisely the directions on the label. If the symptoms get worse and your provider is unavailable, return to the Emergency Department immediately. KAYCEE CASTILLO MD Sep 13, 2018 22:25
[2018-09-13] MEDS ORDERED: HYDROCODONE/APAP (5/325) TAB PO ONE (22:30)
[2018-09-13] MEDS ORDERED: IBUPROFEN 600 MG TAB PO ONE (22:30)
[2018-09-14] MEDS ORDERED: CIPROFLOXACIN 500 MG TAB PO ONE (01:00)
[2018-09-14 01:33] VITALS: BP 112/78; PULSE 80; RESP 18
== END 2018-09-14 01:41 | disposition home or self-care (01) ==
LOC: FTE 21:19
DX: N39.0 Urinary tract infection, site not specified (principal); N83.202 Unspecified ovarian cyst, left side
CPT/HCPCS: 36415; 76856; 80048; 81001; 81025; 85025